=== PATIENT | male | born 1990 | race Caucasian/White ===

== ENCOUNTER 2024-03-06 17:40 | Emergency (ER) | payer BC, SELFPAY ==
[2024-03-06] MEDS ORDERED: Midazolam HCl 2 mg/2 ml Vial ONE (17:44)
[2024-03-06] MEDS ORDERED: Folic Acid 5 MG/ML MDV ONE (18:07)
[2024-03-06] MEDS ORDERED: Multivit, Adult Inj 10 ML VIAL ONE (18:08)
[2024-03-06] MEDS ORDERED: Thiamine HCl 200 MG/2 ML VIAL ONE (18:08)
[2024-03-06] MEDS ORDERED: Dextrose 5 %-0.45 % NaCl 1,000 ML ONE (18:08)
[2024-03-06 18:23] LABS: #Basophils 0.1 thou/uL (0.0-0.2); #Lymphocytes 2.1 thou/uL (1.20-3.40); #Monocytes 0.6 thou/uL (0.11-0.59); #Neutrophils 6.8 thou/uL (1.40-6.50); %Basophils 1.1 % (0.0-1.0); %Eosinophils 0.2 % (0.0-10.0); %Lymphocytes 21.6 % (21.0-51.0); %Monocytes 5.8 % (0.0-10.0); %Neutrophils 71.2 % (42.0-75.0); Hematocrit 50.4 % (42.0-52.0); Hemoglobin 16.7 g/dL (14.0-18.0); Mean Corpuscular HGB CONC 33.1 g/dL (32.0-36.0); Mean Corpuscular Hemoglobin 32.1 pg (27.0-31.0); Mean Corpuscular Volume 96.9 fl (78.0-98.0); Mean Platelet Volume 7.5 fL (7.4-10.4); Platelet Count 482 10x3/uL (130-400); RBC Distribution Width 11.4 % (11.5-14.5); White Blood Cell (WBC) Count 9.5 10x3/uL (4.8-10.8)
[2024-03-06 18:34] LABS: ALT (SGPT) 99 U/L (Less than 45); AST (SGOT) 77 U/L (11-34); Albumin 4.8 g/dL (3.1-4.5); Alkaline Phosphatase 112 U/L (40-110); Anion Gap 23 mmol/L (10-20); BUN (Urea Nitrogen) 7 mg/dL (8.9-20.6); Bilirubin, Total 0.7 mg/dL (0.3-1.2); Calc. Creatinine Clearance 0 mL/min (70-130); Calcium 9.9 mg/dL (7.8-10.44); Carbon Dioxide 18 mmol/L (22-29); Chloride 101 mmol/L (98-107); Estimated GFR 93; Globulin 4.5 g/dL (2.4-3.5); Glucose 84 mg/dL (70-105); Potassium 3.8 mmol/L (3.5-5.1); Protein, Total 9.3 g/dL (6.0-8.3); Sodium 138 mmol/L (136-145)
[2024-03-06 18:35] LABS: Acetaminophen Less than 10 mcg/mL (Less than 10); Alcohol 195.4 mg/dL (Less than 10); Salicylate Less than 8.0 mg/dL (Less than 8.0)
[2024-03-06 18:36] LABS: Troponin I Less than 0.010 ng/mL (< 0.028)
[2024-03-06 18:44] LABS: Base Excess-Venous -2.4 mmol/L (-2.0 to 3.0); Bicarbonate (HCO3v) 23.7 mmol/L (22.0-28.0); CO2 Tension (PvCO2) 44.2 mmHg (42.0-51.0); Calcium, Ionized 1.09 mmol/L (1.15-1.33); Chloride 104 mmol/L (98-107); Hemoglobin - Calc 18.9 g/dL (14.0-18.0); Sodium 139 mmol/L (138-145); T. Carbon Dioxide 25.1 mmol/L (22.0-28.0); vO2 Saturation-calc 83.6 % (60.0-85.0)
[2024-03-06] MEDS ORDERED: Lorazepam 2 MG/ML VIAL ONE ×2 (19:04→20:05)
[2024-03-06] MEDS ORDERED: Ondansetron PF 4 MG/2 ML Vial ONE (20:05)
== END 2024-03-06 21:39 | disposition short-term general hospital (02) ==
LOC: MADERS 17:40
DX: F10.231 Alcohol dependence with withdrawal delirium (principal); Y90.6 Blood alcohol level of 120-199 mg/100 ml; Z55.6 Problems related to health literacy
CPT/HCPCS: 70450; 80053; 80307; 82330; 82435; 82550; 82803; 83605; 84132; 84295; 84484; 85014; 85025; 87040; 93005; 96372; 96374; 96375; 96376; J2060; J2250; J2405; J3411; J7042